=== PATIENT | female | born 1960 | race Two or more races ===

== ENCOUNTER 2020-01-28 18:33 | Emergency (ER) | payer OTHER ==
[~2020-01-28] VITALS: Ht 165.1 cm; Wt 75.7 kg
[~2020-01-28 18:33] MED LIST: CIPRO500 MG/51 PO; TRAMADOL HCL50 MG ORAL
--- NOTE | 2020-01-28 18:56 | NUR ---
ED Nurse Note: Pt ambulated to ed c/o lower abdomen pain with bloody emesis since last night. pt reports that she has dizziness and cold sweats. Urine specimen obtained, IV site established patent and intact blood sent to urine and blood sent to lab
[2020-01-28 18:58] VITALS: BP 131/71
--- NOTE | 2020-01-28 19:03 | NUR ---
ED Nurse Note: xray completed
--- NOTE | 2020-01-28 19:05 | NUR ---
ED Nurse Note: pt laying in bed with eyes open. Breathing even and unlabored. C/o abdominal pain 09/05. EDMD aware. Vital signs stable.
--- NOTE | 2020-01-28 19:05 | NUR ---
HAND-OFF: Report given to osiel hu.
[2020-01-28 19:10] LABS: BASOPHILS % (AUTO) 0.7 % (0.0-2.0); EOSINOPHILS % (AUTO) 0.1 % (0.0-3.0); HEMOGLOBIN 12.8 G/DL (12.0-16.0); LYMPHOCYTES % (AUTO) 9.8 % (20.0-45.0); MEAN CORPUSCULAR VOLUME 83 FL (80-99); MONOCYTES % (AUTO) 4.6 % (1.0-10.0); NEUTROPHILS % (AUTO) 84.8 % (45.0-75.0); PLATELET COUNT 391 K/UL (150-450); RED CELL DISTRIBUTION WIDTH 15.5 % (11.6-14.8); WHITE BLOOD COUNT 12.9 K/UL (4.8-10.8)
[2020-01-28 19:10] LABS: APPEARANCE,URINE CLEAR; BILIRUBIN, URINE NEGATIVE (NEGATIVE); COLOR,URINE PALE YELLOW; GLUCOSE, URINE (UA) NEGATIVE (NEGATIVE); KETONES,URINE 3+ (NEGATIVE); LEUKOCYTE ESTERASE ,URINE 1+ (NEGATIVE); NITRITE,URINE NEGATIVE (NEGATIVE); PH,URINE 8 (4.5-8.0); PROTEIN,URINE NEGATIVE (NEGATIVE); UROBILINOGEN,URINE NORMAL MG/DL (0.0-1.0)
[2020-01-28] MEDS: Morphine Sulfate 4mg/ml Inj (IV USE ONLY) IVP ONE ×2 (19:15→19:22)
[2020-01-28] MEDS ORDERED: Omnipaque-300 100ml vial INJ PRN (19:15)
--- NOTE | 2020-01-28 19:18 | Emergency Room Report ---
History of Present Illness General Chief Complaint: Abdominal Pain Source: Patient Present Illness HPI Disclaimer: Please note that this report is being documented using [employer] technology. This can lead to erroneous entry secondary to incorrect interpretation by the dictating instrument. HPI: 59-year-old female history of cervical cancer status post total hysterectomy and oophorectomy, chemotherapy and radiation presents for evaluation of abdominal pain. Symptoms began this morning after eating breakfast. She reports lower abdominal cramping feeling like her intestines are "squeezing." She states is similar feeling to her SBO. This was treated nonoperatively. Continues to pass gas. Pain comes and goes in waves. Exacerbated by eating. No relieving factors noted. Last vomit was 30 minutes ago. Denies diarrhea. Denies dysuria or hematuria. Denies fever or chills. Unable to eat during the day as she throws up immediately. Denies chest pain, palpitations, shortness of breath. PMH: Cervical cancer, pituitary cancer PSH: Appendectomy, total hysterectomy, pituitary tumor excision Allergies: Denied Social Hx: Denied Allergies: Coded Allergies: No Known Allergies (Unverified , 10/18/13) COVID-19 Screening Contact w/high risk pt: No Experienced COVID-19 symptoms?: No COVID-19 Testing performed [employer]: Yes COVID-19 Screening: Negative COVID-19 COVID-19 Testing Source: nasal Nursing Documentation-PM Past Medical History: No History, Except For Hx Cardiac Problems: No - brain surgery Hx Cancer: Yes - pelvic cancer on remission Hx Gastrointestinal Problems: Yes Review of Systems All Other Systems: negative except mentioned in HPI Physical Exam Vital Signs Date Time Temp Pulse Resp B/P (MAP) Pulse Ox O2 Delivery O2 Flow Rate FiO2 01/28/20 18:45 96.3 103 17 131/71 (91) 97 Room Air General: Awake and alert, appears uncomfortable HEENT: NC/AT. EOMI. Cardiovascular: RRR. S1 and S2 normal. No murmur appreciated Resp: Normal work of breathing. No cough, wheezing or crackles appreciated Abdomen: Abdomen is soft, nondistended. Tender to palpation in the suprapubic region. No significant tenderness in the right lower quadrant or left lower quadrant or periumbilical region. Mild tenderness of left upper quadrant. No tenderness in the epigastrium or right upper quadrant. No masses. No guarding. No peritoneal signs. Skin: Intact. No abrasions, laceration or rash over the exposed skin MSK: Normal tone and bulk. Moving all extremities. No obvious deformity. Neuro: Awake and alert. Mentating appropriately. Medical Decision Making Diagnostic Impression: Primary Impression: Small bowel obstruction ER Course Is a 59-year-old female presenting for evaluation abdominal pain and vomiting beginning this morning. Concern for obstruction, malignancy, gastritis, gastroenteritis, pancreatitis, nephrolithiasis, UTI, pyelonephritis among others. Labs returned largely within normal limits. Slight white count at 12.9 with a neutrophil predominance. Patient is afebrile. Chemistry unremarkable and lipase is normal. Urinalysis shows white cells and 1+ leukocyte esterase but few bacteria and moderate squamous cells. May represent a contaminated sample. CT scan concerning for evolving small bowel obstruction. The patient kept n.p.o. and started on maintenance fluids. Will require admission. Discussed with Dr. Epstein who is accepted the patient for transfer to [facility] [place]. Laboratory Tests Test 01/28/20 18:30 01/28/20 18:50 Urine Color Pale yellow Urine Appearance Clear Urine pH 8 (4.5-8.0) Urine Specific [place] 1.015 (1.005-1.035) Urine Protein Negative (NEGATIVE) Urine Glucose (UA) Negative (NEGATIVE) Urine Ketones 3+ (NEGATIVE) H Urine Blood Negative (NEGATIVE) Urine Nitrite Negative (NEGATIVE) Urine Bilirubin Negative (NEGATIVE) Urine Urobilinogen Normal MG/DL (0.0-1.0) Urine Leukocyte Esterase 1+ (NEGATIVE) H Urine RBC 0-2 /HPF (0 - 2) Urine WBC 5-10 /HPF (0 - 2) H Urine Squamous Epithelial Cells Moderate /LPF (NONE/OCC) H Urine Bacteria Few /HPF (NONE) White Blood Count 12.9 K/UL (4.8-10.8) H Red Blood Count 4.80 M/UL (4.20-5.40) Hemoglobin 12.8 G/DL (12.0-16.0) Hematocrit 40.0 % (37.0-47.0) Mean Corpuscular Volume 83 FL (80-99) Mean Corpuscular Hemoglobin 26.7 PG (27.0-31.0) L Mean Corpuscular Hemoglobin Concent 32.0 G/DL (32.0-36.0) Red Cell Distribution Width 15.5 % (11.6-14.8) H Platelet Count 391 K/UL (150-450) Mean Platelet Volume 6.4 FL (6.5-10.1) L Neutrophils (%) (Auto) 84.8 % (45.0-75.0) H Lymphocytes (%) (Auto) 9.8 % (20.0-45.0) L Monocytes (%) (Auto) 4.6 % (1.0-10.0) Eosinophils (%) (Auto) 0.1 % (0.0-3.0) Basophils (%) (Auto) 0.7 % (0.0-2.0) Sodium Level 140 MMOL/L (136-145) Potassium Level 3.7 MMOL/L (3.5-5.1) Chloride Level 101 MMOL/L (98-107) Carbon Dioxide Level 33 MMOL/L (21-32) H Anion Gap 7 mmol/L (5-15) Blood Urea Nitrogen 8 mg/dL (7-18) Creatinine 0.9 MG/DL (0.55-1.30) Estimated Glomerular Filtration Rate > 60 mL/min (>60) Glucose Level 134 MG/DL (74-106) H Calcium Level 9.3 MG/DL (8.5-10.1) Total Bilirubin 0.4 MG/DL (0.2-1.0) Aspartate Amino Transferase (AST) 31 U/L (15-37) Alanine Aminotransferase (ALT) 42 U/L (12-78) Alkaline Phosphatase 105 U/L (46-116) Total Protein 7.7 G/DL (6.4-8.2) Albumin 3.7 G/DL (3.4-5.0) Globulin 4.0 g/dL Albumin/Globulin Ratio 0.9 (1.0-2.7) L Lipase 137 U/L (73-393) CT/MRI/US Diagnostic Results CT/MRI/US Diagnostic Results : Impression IMPRESSION: 1. Some prominent fluid filled small bowel loops with decompressed distal segments, findings suggest evolving obstruction. There are some thickened small bowel loops as well with mild edema in the mesentery. No pneumatosis or extraluminal air. 2. Some air in the bladder. May be from recent instrumentation or infection with a gas-forming organism. No apparent fistula. Dictated By: Su Jackson MD Electronically Signed By:Su Jackson MD Signed Date/Time01/28/202022 CC: Rob Ingram MD Last Vital Signs Date Time Temp Pulse Resp B/P (MAP) Pulse Ox O2 Delivery O2 Flow Rate FiO2 01/28/20 18:58 103 17 Room Air 01/28/20 18:58 96.3 131/71 97 Disposition: SHORT-TERM HOSP Condition: Serious Rob Ingram MD Jan 28, 2020 19:17
--- NOTE | 2020-01-28 19:22 | NUR ---
ED Nurse Note: pt refused morphinr. EDMD aware. Morphine wasted in Pyxis with JUAN Williamson.
[2020-01-28 19:27] LABS: ANION GAP 7 mmol/L (5-15); BLOOD UREA NITROGEN 8 mg/dL (7-18); CALCIUM 9.3 MG/DL (8.5-10.1); CARBON DIOXIDE 33 MMOL/L (21-32); CHLORIDE 101 MMOL/L (98-107); CREATININE 0.9 MG/DL (0.55-1.30); POTASSIUM 3.7 MMOL/L (3.5-5.1); SODIUM 140 MMOL/L (136-145)
[2020-01-28 19:32] LABS: ALANINE AMINOTRANSFERASE 42 U/L (12-78); ALBUMIN 3.7 G/DL (3.4-5.0); ALBUMIN/GLOBULIN RATIO 0.9 (1.0-2.7); ALKALINE PHOSPHATASE 105 U/L (46-116); ASPARTATE AMINO TRANSFERASE 31 U/L (15-37); BILIRUBIN,TOTAL 0.4 MG/DL (0.2-1.0)
--- NOTE | 2020-01-28 19:42 | NUR ---
ED Nurse Note: pt went down for CT via w/c accompanied by CT staff
--- NOTE | 2020-01-28 20:00 | NUR ---
ED Nurse Note: pt back from CT in stable condition
--- NOTE | 2020-01-28 20:24 | Diagnostic Imaging Report ---
EXAM: CT Abdomen and Pelvis With Intravenous Contrast CLINICAL HISTORY: ABD PAIN TECHNIQUE: Axial computed tomography images of the abdomen and pelvis with intravenous contrast. CTDI is 7.8 mGy and DLP is 417.5 mGy-cm. One or more of the following dose reduction techniques were used: automated exposure control, adjustment of the mA and/or kV according to patient size, use of iterative reconstruction technique. COMPARISON: No relevant prior studies available. FINDINGS: Lung bases: Unremarkable. ABDOMEN: Liver: Unremarkable. Gallbladder and bile ducts: No calcified stones. No ductal dilation. Pancreas: Unremarkable. Spleen: Unremarkable. Adrenals: Unremarkable. Kidneys and ureters: Unremarkable. No hydronephrosis. Stomach and bowel: Some prominent fluid filled small bowel loops with decompressed distal segments, findings suggest evolving obstruction. There are some thickened small bowel loops as well with mild edema in the mesentery. No pneumatosis or extraluminal air. PELVIS: Appendix: Appendix not identified. Bladder: Some air in the bladder. Reproductive: Hysterectomy. ABDOMEN and PELVIS: Intraperitoneal space: See above. Bones/joints: No acute fracture. Soft tissues: Fat-containing ventral hernia. Vasculature: Unremarkable. No abdominal aortic aneurysm. Lymph nodes: No enlarged lymph nodes. IMPRESSION: 1. Some prominent fluid filled small bowel loops with decompressed distal segments, findings suggest evolving obstruction. There are some thickened small bowel loops as well with mild edema in the mesentery. No pneumatosis or extraluminal air. 2. Some air in the bladder. May be from recent instrumentation or infection with a gas-forming organism. No apparent fistula.
[2020-01-28] MEDS ORDERED: DESMOPRESS10 MCG/0.4 NS (21:42)
[2020-01-28] MEDS ORDERED: SYNTHROID125 MCG ORAL (21:42)
[2020-01-28] MEDS ORDERED: PREDNISONE10 MG ORAL ×2 (21:44)
--- NOTE | 2020-01-28 21:54 | NUR ---
ED Nurse Note: COVID swab sent to lab
[2020-01-28 23:44] VITALS: BP 128/76
--- NOTE | 2020-01-28 23:44 | NUR ---
ED Nurse Note: pt laying in bed with eyes closed, opens eyes when name is called. No complaints from pt at the moment.
--- NOTE | 2020-01-28 23:58 | NUR ---
ED Nurse Note: [facility] at bedside. Report given to Ambulance [facility]. Belongings and summary report given to Ambulance Personelle. IV remained in place. Unable to give report to [facility] to answer from facility.
[2020-01-29 00:01] VITALS: BP 125/70
--- NOTE | 2020-01-31 17:40 | Diagnostic Imaging Report ---
Indication: Abdominal pain Technique: Supine view of the abdomen Comparison: 10/19/2013 Findings: Unremarkable bowel gas pattern. Surgical clip is seen in the right-sided pelvis. No significant change Impression: Negative
== END 2020-01-29 00:01 | disposition short-term general hospital (02) ==
LOC: EMR 19:38 → EDBEDREQ 20:28 → EMR 01-29 00:01
DX: K56.609 Unspecified intestinal obstruction, unspecified as to partial versus complete obstruction (principal); Z86.011 Personal history of benign neoplasm of the brain; Z90.710 Acquired absence of both cervix and uterus; Z90.722 Acquired absence of ovaries, bilateral; Z85.41 Personal history of malignant neoplasm of cervix uteri; Z92.21 Personal history of antineoplastic chemotherapy; Z92.3 Personal history of irradiation; Z98.890 Other specified postprocedural states
CPT/HCPCS: 36415; 74018; 74177; 80053; 81003; 83690; 85025; 96361; 96374; 96375; 99285; J2405; J7030; Q9965; S0028; U0002